=== PATIENT | male | born 1965 | race Caucasian/White ===

== ENCOUNTER 2021-03-02 10:29 | Outpatient (REF) | payer OTHER, SELFPAY ==
--- NOTE | ~2021-03-02 | XR_ITS ---
EXAMINATION: XR HUMERUS, LEFT XR FOREARM, LEFT XR HAND, LEFT CLINICAL INFORMATION: Pain left arm. COMPARISON: Radiographs left elbow 03/27/2016. TECHNIQUE: The left humerus is imaged in 3 views. The left forearm is imaged in 2 views. The left hand is imaged in 3 views. There are total of 8 views. FINDINGS: The left humerus shows no fracture, dislocation or destructive process. There is no periostitis. Glenohumeral joint is unremarkable. The left forearm shows no fracture, dislocation or destructive process. Again, there is borderline spurring from the olecranon, coronoid process, and medial epicondyle. There is no visible elbow capsular effusion. No joint narrowing. The left hand shows no fracture, dislocation or destructive process. The ulnar variance is neutral. The carpus, metacarpals, and interphalangeal joints show no focal narrowing or erosive change. XR/XR forearm LT 2V IMPRESSION: 1. No fracture or dislocation or destructive process. 2. Minor spurring elbow (olecranon, coronoid, medial epicondyle).
--- NOTE | ~2021-03-02 | XR_ITS ---
EXAMINATION: XR HUMERUS, RIGHT XR FOREARM, RIGHT CLINICAL INFORMATION: Right arm pain. COMPARISON: None TECHNIQUE: The right humerus is imaged in 2 views. The right forearm is imaged in 2 views. There are a total of 4 views. FINDINGS: The right humerus shows no fracture, dislocation or destructive process. Bony mineralization appears normal. There is no periostitis. The glenohumeral joint is unremarkable. The right forearm shows no fracture, dislocation or destructive process. There is normal bony mineralization. No periostitis. No elbow capsular effusion. No joint narrowing. XR/XR humerus RT IMPRESSION: Normal right humerus, right forearm.
--- NOTE | ~2021-03-02 | XR_ITS ---
EXAMINATION: XR HUMERUS, LEFT XR FOREARM, LEFT XR HAND, LEFT CLINICAL INFORMATION: Pain left arm. COMPARISON: Radiographs left elbow 03/27/2016. TECHNIQUE: The left humerus is imaged in 3 views. The left forearm is imaged in 2 views. The left hand is imaged in 3 views. There are total of 8 views. FINDINGS: The left humerus shows no fracture, dislocation or destructive process. There is no periostitis. Glenohumeral joint is unremarkable. The left forearm shows no fracture, dislocation or destructive process. Again, there is borderline spurring from the olecranon, coronoid process, and medial epicondyle. There is no visible elbow capsular effusion. No joint narrowing. The left hand shows no fracture, dislocation or destructive process. The ulnar variance is neutral. The carpus, metacarpals, and interphalangeal joints show no focal narrowing or erosive change. XR/XR humerus LT IMPRESSION: 1. No fracture or dislocation or destructive process. 2. Minor spurring elbow (olecranon, coronoid, medial epicondyle).
--- NOTE | ~2021-03-02 | XR_ITS ---
EXAMINATION: XR HUMERUS, LEFT XR FOREARM, LEFT XR HAND, LEFT CLINICAL INFORMATION: Pain left arm. COMPARISON: Radiographs left elbow 03/27/2016. TECHNIQUE: The left humerus is imaged in 3 views. The left forearm is imaged in 2 views. The left hand is imaged in 3 views. There are total of 8 views. FINDINGS: The left humerus shows no fracture, dislocation or destructive process. There is no periostitis. Glenohumeral joint is unremarkable. The left forearm shows no fracture, dislocation or destructive process. Again, there is borderline spurring from the olecranon, coronoid process, and medial epicondyle. There is no visible elbow capsular effusion. No joint narrowing. The left hand shows no fracture, dislocation or destructive process. The ulnar variance is neutral. The carpus, metacarpals, and interphalangeal joints show no focal narrowing or erosive change. XR/XR hand LT min 3V IMPRESSION: 1. No fracture or dislocation or destructive process. 2. Minor spurring elbow (olecranon, coronoid, medial epicondyle).
--- NOTE | ~2021-03-02 | XR_ITS ---
EXAMINATION: XR HUMERUS, RIGHT XR FOREARM, RIGHT CLINICAL INFORMATION: Right arm pain. COMPARISON: None TECHNIQUE: The right humerus is imaged in 2 views. The right forearm is imaged in 2 views. There are a total of 4 views. FINDINGS: The right humerus shows no fracture, dislocation or destructive process. Bony mineralization appears normal. There is no periostitis. The glenohumeral joint is unremarkable. The right forearm shows no fracture, dislocation or destructive process. There is normal bony mineralization. No periostitis. No elbow capsular effusion. No joint narrowing. XR/XR forearm RT 2V IMPRESSION: Normal right humerus, right forearm.
[2021-03-02 11:43] LABS: MANUAL DIFF FLAG NO
[2021-03-02 11:47] LABS: Basophils Percent Auto 0.4 % (0-2); Eosinophils Absolute Auto 0.1 X10*3/uL (0.0-0.4); Eosinophils Percent Auto 1.9 % (0-4); Hematocrit 48.4 % (42-52); Hemoglobin 15.9 g/dl (14.0-18.0); Imm Gran Abs Auto 0.05 X10*3/uL (0.00-0.03); Imm Gran Pct Auto 0.7 % (0.0-0.4); Lymphocytes Absolute Auto 2.4 X10*3/uL (1.2-4.9); Lymphocytes Percent Auto 35.5 % (20-40); Mean Corpuscular HGB Conc 32.9 g/dl (31.0-36.0); Mean Corpuscular Hemoglobin 28.4 pg (27.0-33.0); Mean Corpuscular Volume 86.4 fL (80-98); Mean Platelet Volume 10.4 fL (9.4-12.4); Monocytes Absolute Auto 0.5 X10*3/uL (0.1-1.2); Neutrophils Absolute Auto 3.6 X10*3/uL (2.0-8.3); Neutrophils Percent Auto 54.5 % (45-73); Platelet Count 317 X10*3/uL (160-400); Red Cell Distribution Width 13.7 % (11.0-16.0); White Blood Count 6.7 X10*3/uL (4.8-10.8)
[2021-03-02 12:16] LABS: Alanine Aminotransferase 17 U/L (0-40); Albumin Level 4.6 g/dL (3.5-5.0); Alkaline Phosphatase 71 U/L (39-117); Anion Gap 12 (12-20); Aspartate Amino Transferase 19 U/L (5-37); Bilirubin Total 0.6 mg/dL (0.0-1.0); Blood Urea Nitrogen 20 mg/dL (9-16); Calcium 10.2 mg/dL (8.4-10.2); Carbon Dioxide 26 mmol/L (22-29); Chloride 107 mmol/L (96-108); Cholesterol 299 mg/dL; Estimated Glomerular Filt Rate > 60; Glucose Random 91 mg/dL (60-115); HDL Cholesterol 38 mg/dL; LDL Cholesterol Calculated 234 mg/dl; Potassium 4.7 mmol/L (3.3-5.1); Sodium 140 mmol/L (135-145); Total Protein 7.4 g/dL (6.5-8.0); Triglycerides 138 mg/dL
[2021-03-02 12:40] LABS: TSH reflex Free T4 0.61 uIU/mL (0.32-4.0); Vitamin D 25-OH Total 11.4 ng/mL (>30)
[2021-03-02 13:07] LABS: Vitamin B12 169 pg/mL (200-900)
[2021-03-02 14:25] LABS: Estimated Average Glucose 108 mg/dL; Hemoglobin A1c % 5.4 %
== END 2021-03-02 10:30 | disposition home or self-care (01) ==
LOC: HO.XRAY 10:29
PROVIDERS: Absent Provider Internal Medicine; PCP Internal Medicine; Visit Provider Registered Nurse
DX: M79.601 Pain in right arm (principal); M79.602 Pain in left arm; R20.0 Anesthesia of skin; E78.00 Pure hypercholesterolemia, unspecified; I10 Essential (primary) hypertension
CPT/HCPCS: 36415; 73060; 73090; 73130; 80053; 80061; 82306; 82607; 82746; 83036; 84443; 85025

== ENCOUNTER 2021-07-10 20:41 | Emergency (ER) | payer OTHER, SELFPAY ==
[2021-07-10 20:45] VITALS: BP 150/111; PULSE 96; RESP 16; TEMP 36.5; O2SAT 98; BMI 31.4
[2021-07-10 23:05] VITALS: BP 140/106; PULSE 87; RESP 16; TEMP 36.6; O2SAT 96
--- NOTE | 2021-07-10 23:05 | ED.ABDPAIN ---
HPI - Abdominal Pain General Chief Complaint: Abdominal Pain Stated Complaint: gi problems Time Seen by Provider: 07/10/21 22:45 Source: patient, EMS and director of community center Mode of arrival: EMS Limitations: no limitations and language barrier History of Present Illness HPI narrative: 55-year-old male with a past medical history of hypertension and hyperlipidemia here with complaints of upper abdominal pain after eating a old hamburger at 19:00. He had 3 episodes of vomiting after this. No diarrhea. MD elicited complaint: abdominal pain Related Data Previous Rx's Medication Instructions Recorded ondansetron 4 mg disintegrating 4 mg PO Q6H PRN #10 tab 07/11/21 tablet Allergies Allergy/AdvReac Type Severity Reaction Status Date / Time No Known Allergies Allergy Unverified 08/05/20 16:43 Review of Systems Review of Systems Yes all other systems are reviewed and are negative Constitutional: Reports no additional constitutional complaints, Denies body ache(s), Denies chills, Denies fever(s), Denies headache(s) and Denies weakness Eyes: Reports no additional eye complaints and Denies change in vision Reports system reviewed and no additional complaints, except as documented, Denies dizziness, Denies headache(s), Denies nasal congestion, Denies nasal discharge and Denies neck pain Cardiovascular: Reports no additional cardiovascular complaints, Denies chest pain, Denies leg edema and Denies dyspnea Respiratory: Reports no additional respiratory complaints, Denies cough and Denies dyspnea Gastrointestinal: Reports no additional gastrointestinal complaints, Reports abdominal pain, Denies diarrhea, Reports nausea and Denies vomiting Genitourinary: Denies urinary incontinence Musculoskeletal: Reports no additional musculoskeletal complaints, Denies back pain, Denies arthralgias, Denies joint swelling, Denies neck pain, Denies numbness and Denies tingling Skin/Breast: Reports system reviewed and no additional complaints, except as docu and Denies rash Reports system reviewed and no additional complaints, except as documented, Denies Abnormal speech present, Denies dizziness, Denies headache(s), Denies numbness, Denies tingling and Denies weakness Physical Exam Vital Signs: Vital Signs: Last Vital Signs Temp 97.9 F 07/10/21 23:05 Pulse 87 07/10/21 23:05 Resp 16 07/11/21 00:58 BP 140/106 H 07/10/21 23:05 Pulse Ox 96 07/10/21 23:05 Body Mass Index 31.4 Const: General: cooperative, healthy appearing, comfortable and no acute distress Orientation/consciousness: patient oriented x3 Limitations: no limitations HENMT: Head: Yes normal to inspection Ears: hearing grossly normal bilaterally General nose exam: Normal external nose present Face and sinus: Yes normal facial exam Mouth: Normal oral and palatal mucosa present Throat: Yes posterior oropharynx normal Eyes: General: appearance normal, both eyes and all related structures Pupils: Equal, round and reactive pupils present Neck: Neck: Yes normal visual inspection Chest: Chest palpation & inspection: normal inspection of the chest Resp: Effort & Inspection: normal respiratory effort Auscultation: clear to auscultation bilaterally Cardio: Rate: regular rate Rhythm: regular rhythm Peripheral pulses: Peripheral pulses 2+ throughout GI: Inspection: Yes normal to inspection Palpation (GI): Soft to palpation and Tenderness to palpation present (GI) (Diffusely tender. No rebound or guarding) Auscultation: normal bowel sounds Back/Spine/Pelvis: Thoracic/Lumbar Spine: thoracic and lumbar spine normal to inspection Skin: General skin exam: no rashes or lesions noted Neuro: General: patient oriented x3, no focal motor deficits and normal sensation to monofilament Cranial nerves: Yes Equal, round and reactive pupils present Cognition (Neuro): normal cognition Speech: No Abnormal speech present Gait exam (Neuro): Normal gait present Motor exam (neuro): 5/5 motor strength present throughout Extrem: General: Yes normal to inspection Course Course Course Narrative: 55-year-old male here with complaints of diffuse abdominal pain, vomiting after eating an old hamburger at 19:00. On exam has diffuse tenderness with no focal tenderness or rebound or guarding. Will check labs, provide analgesia, normal saline bolus and antiemetic.. 0100-patient tells me he is feeling much improved. Pain and nausea are resolved. Repeat abdominal exam is benign. He will attempt a p.o. trial prior to discharge home.. Mild leukocytosis likely secondary to vomiting. 0130-patient drank 8 oz of rosy patrica with no additional vomiting episodes. Reviewed worrisome signs and symptoms of when to return to the emergency department. Comfortable discharge home. MDM - Abdominal Pain Medical Records Attestation: I reviewed the patient's medical records. Lab Data Attestation: I reviewed the patient's lab results. Result diagrams: 07/10/21 23:12 07/10/21 23:12 Labs: Lab Results 07/10/21 07/10/21 Range/Units 23:12 23:12 WBC 18.7 H (4.8-10.8) X10*3/uL RBC 6.02 H (4.60-5.80) X10*6/uL Hgb 17.5 (14.0-18.0) g/dl Hct 51.1 (42-52) % MCV 84.9 (80-98) fL MCH 29.1 (27.0-33.0) pg MCHC 34.2 (31.0-36.0) g/dl RDW 13.4 (11.0-16.0) % Plt Count 308 (160-400) X10*3/uL MPV 10.0 (9.4-12.4) fL Immature Gran % (Auto) 0.8 H (0.0-0.4) % Neut % (Auto) 87.3 H (45-73) % Lymph % (Auto) 5.9 L (20-40) % Shannon % (Auto) 5.5 (2-11) % Eos % (Auto) 0.2 (0-4) % Baso % (Auto) 0.3 (0-2) % Lymph # (Auto) 1.1 L (1.2-4.9) X10*3/uL Shannon # (Auto) 1.0 (0.1-1.2) X10*3/uL Eos # (Auto) 0.0 (0.0-0.4) X10*3/uL Baso # (Auto) 0.1 (0.0-0.2) X10*3/uL Abs Immat Gran (auto) 0.15 H (0.00-0.03) X10*3/uL Absolute Neuts (auto) 16.4 H (2.0-8.3) X10*3/uL Absolute Nucleated RBC 0.000 (0.0-0.012) X10*3/uL Nucleated RBC % (auto) 0.0 (0.0-0.2) /100WBC Sodium 142 (135-145) mmol/L Potassium 5.0 (3.3-5.1) mmol/L Chloride 103 (96-108) mmol/L Carbon Dioxide 28 (22-29) mmol/L Anion Gap 16 (12-20) BUN 20 H (9-16) mg/dL Creatinine 1.34 (0.5-1.4) mg/dL Estim Creat Clear Calc 63.3 Estimated GFR 55 Random Glucose 168 H D (60-115) mg/dL Calcium 10.9 H D (8.4-10.2) mg/dL Total Bilirubin 0.4 (0.0-1.0) mg/dL Direct Bilirubin 0.2 (0.0-0.5) mg/dL AST 26 (5-37) U/L ALT 26 (0-40) U/L Alkaline Phosphatase 75 (39-117) U/L Total Protein 8.2 H (6.5-8.0) g/dL Albumin 5.0 (3.5-5.0) g/dL Lipase 12 (8-78) U/L Discharge Plan Discharge Clinical Impression: Food poisoning Patient Disposition: Home, Self-Care Instructions: Food Poisoning (ED) Additional Instructions: Increase fluids, rest Start with fluids and then advance her diet as tolerated Prescriptions: New ondansetron 4 mg tablet,disintegrating 4 mg PO Q6H PRN (Reason: nausea and vomiting) Qty: 10 RF: 0 Referrals: Pee Lopes MD [Primary Care Provider] - 2 days (as needed) Stand Alone Forms: Work/School Release Print Language: Yakut [facility] Past Medical History Attestation statement: The following information was validated with the patient. Source: old records reviewed and nursing notes reviewed Medical History HLD (hyperlipidemia) HTN (hypertension) Social History Social History Advance Directives: No Advance Directives Information Provided: No
[2021-07-10] MEDS: ondansetron HCL 4 MG/2 ML VIAL IVPUSH (23:18)
[2021-07-10 23:19] LABS: Basophils Absolute Auto 0.1 X10*3/uL (0.0-0.2); Basophils Percent Auto 0.3 % (0-2); Eosinophils Percent Auto 0.2 % (0-4); Hematocrit 51.1 % (42-52); Hemoglobin 17.5 g/dl (14.0-18.0); Imm Gran Abs Auto 0.15 X10*3/uL (0.00-0.03); Imm Gran Pct Auto 0.8 % (0.0-0.4); Lymphocytes Absolute Auto 1.1 X10*3/uL (1.2-4.9); Lymphocytes Percent Auto 5.9 % (20-40); MANUAL DIFF FLAG NO; Mean Corpuscular HGB Conc 34.2 g/dl (31.0-36.0); Mean Corpuscular Hemoglobin 29.1 pg (27.0-33.0); Mean Corpuscular Volume 84.9 fL (80-98); Monocytes Percent Auto 5.5 % (2-11); Neutrophils Absolute Auto 16.4 X10*3/uL (2.0-8.3); Neutrophils Percent Auto 87.3 % (45-73); Platelet Count 308 X10*3/uL (160-400); Red Blood Count 6.02 X10*6/uL (4.60-5.80); Red Cell Distribution Width 13.4 % (11.0-16.0); White Blood Count 18.7 X10*3/uL (4.8-10.8)
[2021-07-10 23:21] VITALS: RESP 16
[2021-07-10] MEDS: Morphine Sulfate 4 MG/ML CARTRIDGE IVPUSH (23:21)
[2021-07-10] MEDS: 0.9 % Sodium Chloride 1,000 ML 999 ML IV (23:23)
[2021-07-10] MEDS: Famotidine/PF 20 MG/2 ML VIAL IVPUSH (23:24)
[2021-07-10 23:56] LABS: Alanine Aminotransferase 26 U/L (0-40); Alkaline Phosphatase 75 U/L (39-117); Anion Gap 16 (12-20); Aspartate Amino Transferase 26 U/L (5-37); Bilirubin Direct 0.2 mg/dL (0.0-0.5); Bilirubin Total 0.4 mg/dL (0.0-1.0); Blood Urea Nitrogen 20 mg/dL (9-16); Calcium 10.9 mg/dL (8.4-10.2); Carbon Dioxide 28 mmol/L (22-29); Chloride 103 mmol/L (96-108); Creatinine Clr Calc Pharmacy 63.3; Estimated Glomerular Filt Rate 55; Glucose Random 168 mg/dL (60-115); Lipase 12 U/L (8-78); Sodium 142 mmol/L (135-145); Total Protein 8.2 g/dL (6.5-8.0)
[2021-07-11 00:58] VITALS: RESP 16
== END 2021-07-11 01:27 | disposition home or self-care (01) ==
PROVIDERS: Nurse Practitioner Family; Emergency Provider Internal Medicine; PCP Internal Medicine
DX: R10.9 Unspecified abdominal pain (principal); I10 Essential (primary) hypertension; E78.5 Hyperlipidemia, unspecified; Z79.899 Other long term (current) drug therapy
CPT/HCPCS: 36415; 80048; 80076; 83690; 85025; 96365; 96375; 99284; J2270; J2405

== ENCOUNTER 2023-03-24 21:24 | Emergency (ER) | payer OTHER, SELFPAY ==
--- NOTE | ~2023-03-24 | CT_ITS ---
EXAMINATION: CT ABDOMEN AND PELVIS WITHOUT CONTRAST CLINICAL INFORMATION: Left lower quadrant pain COMPARISON: 07/02/2012 TECHNIQUE: Multidetector volumetric imaging was performed from the superior aspect of the liver through the pubic symphysis. Sagittal and coronal reformatted images were obtained on the technologist's workstation. This CT examination was performed using dose optimization techniques as appropriate, variously including the following: *Automated exposure control *Adjustment of mA and/or kV according to patient size (this includes techniques or standardized protocols for targeted exams where dose is matched to indication/reason for exam; i.e. extremities or head) *Use of iterative reconstruction technique DLP: 657 mGy-cm FINDINGS: Suboptimal assessment in some regions due to motion artifact. LUNG BASES: The visualized lung bases are unremarkable. LIVER, GALLBLADDER, AND BILIARY TREE: The liver is normal in size, shape, and attenuation. No focal hepatic lesion or biliary ductal dilatation is identified. The gallbladder is unremarkable. PANCREAS: Mildly atrophic. SPLEEN: Unremarkable. ADRENAL GLANDS: Unremarkable. KIDNEYS AND URETERS: No hydronephrosis or obstructing calculus bilaterally. Tiny calculus noted in the right upper pole. BLADDER: Unremarkable. GASTROINTESTINAL TRACT: Colonic diverticulosis is noted. No significant bowel wall thickening is seen. There is mild fluid distention of much of the small bowel, though no disproportionate dilation is seen to strongly suggest obstruction. Appendix appears at the upper limits of normal in size, without surrounding inflammation. No free fluid or free air is seen. ABDOMINAL WALL: No significant hernia is appreciated. LYMPH NODES: Normal. VASCULAR: Unremarkable. PELVIC VISCERA: Unremarkable. OSSEOUS STRUCTURES: Scattered endplate osteophytes in the spine. Facet arthropathy at L5-S1. CT/CT abdomen pelvis wo IV con IMPRESSION: 1. Mild fluid distention of much of the small bowel, though no disproportionate dilation is seen to strongly suggest obstruction. A mild ileus would be a possibility. 2. Colonic diverticulosis without diverticulitis. 3. Tiny right upper pole renal calculus without hydronephrosis.
[2023-03-24 21:29] VITALS: BP 138/100; PULSE 90; RESP 20; TEMP 36.3; O2SAT 95; BMI 32.0
[2023-03-24 21:55] LABS: Hematocrit 46.3 % (42.0-52.0); Hemoglobin 15.5 g/dl (14.0-18.0); Mean Corpuscular HGB Conc 33.5 g/dl (31.0-36.0); Mean Corpuscular Hemoglobin 28.3 pg (27.0-33.0); Mean Corpuscular Volume 84.5 fL (80.0-98.0); Platelet Count 258 X10*3/uL (160-400); Red Blood Count 5.48 X10*6/uL (4.60-5.80); Red Cell Distribution Width 13.5 % (11.0-16.0); White Blood Count 15.1 X10*3/uL (4.8-10.8)
[2023-03-24 22:25] LABS: Alanine Aminotransferase 20 U/L (0-40); Albumin Level 4.5 g/dL (3.5-5.0); Alkaline Phosphatase 69 U/L (39-117); Anion Gap 14 (12-20); Aspartate Amino Transferase 21 U/L (5-37); Bilirubin Direct 0.1 mg/dL (0.0-0.5); Bilirubin Total 0.4 mg/dL (0.0-1.0); Blood Urea Nitrogen 19 mg/dL (9-16); Calcium 10.3 mg/dL (8.4-10.2); Carbon Dioxide 25 mmol/L (22-29); Chloride 105 mmol/L (96-108); Estimated Glomerular Filt Rate > 60; Glucose Random 108 mg/dL (60-115); Lipase 16 U/L (8-78); Potassium 4.2 mmol/L (3.3-5.1); Sodium 140 mmol/L (135-145); Total Protein 7.9 g/dL (6.5-8.0)
[2023-03-24 23:55] VITALS: BP 143/97; PULSE 83; RESP 14; TEMP 36.6; O2SAT 96
--- NOTE | 2023-03-25 00:34 | ED.ABDPAIN ---
HPI - Abdominal Pain General Chief Complaint: Abdominal Pain Stated Complaint: abd pain/n/v Time Seen by Provider: 03/24/23 23:58 Source: patient and drilling field professional Mode of arrival: ambulatory History of Present Illness HPI narrative: 57-year-old male who reports abdominal discomfort for 2 days and points to his mid lower abdomen an states that he is continued to pass flatus and his last bowel movement was yesterday and reports associated nausea or vomiting but denies fevers and describes chills. He denies any urinary symptoms and denies any surgical history in the abdomen. He has never had this pain before. Related Data Previous Rx's Medication Instructions Recorded ondansetron 4 mg disintegrating 4 mg PO Q6H PRN nausea and 07/11/21 tablet vomiting #10 tabs ondansetron 4 mg disintegrating 4 mg PO Q6H PRN nausea and 03/25/23 tablet vomiting #10 tabs Allergies Allergy/AdvReac Type Severity Reaction Status Date / Time No Known Allergies Allergy Unverified 08/05/20 16:43 Review of Systems Review of Systems Pertinent positives and negatives as stated in HPI PMFSH Past Medical History Source: nursing notes reviewed Medical History HLD (hyperlipidemia) HTN (hypertension) Social History Social History Advance Directives: No Advance Directives Information Provided: Yes Physical Exam ED Vital Signs: Vital Signs - 24 hr 03/24/23 21:29 03/24/23 23:55 Temperature 97.3 F 97.9 F Pulse Rate 90 83 Respiratory Rate 20 14 Blood Pressure 138/100 H 143/97 H Pulse Oximetry 95 96 Oxygen Delivery Method Room Air Room Air BMI result Body Mass Index 32.0 VITAL SIGNS: Reviewed. GENERAL: Well developed, well nourished, in no acute distress. HEAD: Normocephalic/atraumatic EYES: PERRLA, EOMI EARS: Ext canals without abnormality OROPHARYNX: no oral lesions noted, posterior pharynx clear NECK: Supple, no adenopathy LUNGS: Normal breath sounds. No adventitious sounds or accessory muscle use. SpO2<96> CARDIOVASCULAR: Regular rate and rhythm without noted murmurs ABDOMEN: Soft, diffusely tender on lower abdomen no obvious hernia, no rebound tenderness, non-distended with bowel sounds. MUSCULOSKELETAL: No tenderness, deformities, or effusions noted on gross inspection. EXTREMITIES: No cyanosis, clubbing or edema. SKIN: Inspection of the skin reveals no rashes NEUROLOGIC: Alert and oriented x 4. Strength and sensation to light touch were grossly intact x 4. Medical Decision Making Medical Decision Making [facility] Narrative: 0036: 57-year-old male with history and clinical presentation mildly suggestive of possible diverticulitis, renal colic, and lower clinical suspicion for SBO. Review of all investigations to include imaging studies which do not depth straits diverticulitis, however patient has a white counts and a tender abdomen and obvious evidence enteritis on CT scan. I reviewed his previous chart which demonstrates a leukocytosis and 2020 and presumptive treatment for food poisoning. Patient will be discharged in stable condition with instructions to drink plenty of fluids, he will receive prescription for Zofran, and instructed to follow-up with primary care provider on Sunday morning. Differential Diagnosis Please see the discussion above Lab Data Please see the discussion above 03/24/23 21:49 03/24/23 21:49 Labs: Lab Results 03/24/23 03/24/23 Range/Units 21:49 21:49 WBC 15.1 H (4.8-10.8) X10*3/uL RBC 5.48 (4.60-5.80) X10*6/uL Hgb 15.5 (14.0-18.0) g/dl Hct 46.3 (42.0-52.0) % MCV 84.5 (80.0-98.0) fL MCH 28.3 (27.0-33.0) pg MCHC 33.5 (31.0-36.0) g/dl RDW 13.5 (11.0-16.0) % Plt Count 258 (160-400) X10*3/uL MPV 10.0 (9.4-12.4) fL Absolute Nucleated RBC 0.000 (0.0-0.012) X10*3/uL Nucleated RBC % (auto) 0.0 (0.0-0.2) /100WBC Sodium 140 (135-145) mmol/L Potassium 4.2 (3.3-5.1) mmol/L Chloride 105 (96-108) mmol/L Carbon Dioxide 25 (22-29) mmol/L Anion Gap 14 (12-20) BUN 19 H (9-16) mg/dL Creatinine 1.20 (0.5-1.4) mg/dL Estim Creat Clear Calc 70.0 Estimated GFR > 60 Random Glucose 108 (60-115) mg/dL Calcium 10.3 H (8.4-10.2) mg/dL Total Bilirubin 0.4 (0.0-1.0) mg/dL Direct Bilirubin 0.1 (0.0-0.5) mg/dL AST 21 (5-37) U/L ALT 20 (0-40) U/L Alkaline Phosphatase 69 (39-117) U/L Total Protein 7.9 (6.5-8.0) g/dL Albumin 4.5 (3.5-5.0) g/dL Lipase 16 (8-78) U/L Radiology Impression Radiologist Impression: My interpretation is in agreement with radiology's impression of the imaging studies. External Record Review External record reviewed: Outpatient record and Prior outpatient labs Discharge Plan Discharge Clinical Impression: Gastroenteritis, Food poisoning Patient Disposition: Home, Self-Care Instructions: Gastroenteritis (ED), Food Poisoning (ED) Additional Instructions: 1. Aumente la cantidad de consumo de agua. Te he dado elena receta para un medicamento contra las n?useas. 2. Yaneli un seguimiento con buckner proveedor de atenci?n primaria el es por la ma?harvey. Regrese a la rosibel de emergencias si los s?ntomas empeoran. 1. Please increase the amount water intake. I have given you a prescription for antinausea medication. 2. Follow-up with your primary care provider on Sunday morning. Return to the ER for any worsening symptoms. Prescriptions: New ondansetron 4 mg tablet,disintegrating 4 mg PO Q6H PRN (Reason: nausea and vomiting) Qty: 10 0RF No Action ondansetron 4 mg tablet,disintegrating 4 mg PO Q6H PRN (Reason: nausea and vomiting) Qty: 10 0RF Referrals: [facility] [Primary Care Provider] - Print Language: Ukrainian
[2023-03-25 01:44] LABS: Appearance Urine Clear; Color Urine Yellow; Glucose Urine UA Negative (Negative); Leukocyte Esterase Urine Negative (Negative); Nitrite Urine Negative (Negative); PH 6.5 (5.0-9.0); Specific Gravity - Urine >= 1.030 (1.005-1.025); UMIC TRIGGER UACC YES; Urine Blood Negative (Negative); Urine Ketones 40 mg/dL (Negative); Urine Protein 30 (1+) mg/dL (Neg-Trace)
[2023-03-25 01:50] LABS: Bacteria Urine None Seen (None Seen); Hyaline Casts Urine 0-2 /LPF (0-2); RBC Urine 0-2 /HPF (0-2); Squamous Epithelial Cell Urine 0-2 /HPF (0-2); WBC Urine 0-5 /HPF (0-5)
== END 2023-03-25 01:45 | disposition home or self-care (01) ==
PROVIDERS: Emergency Provider Student in an Organized Health Care Education/Training Program
DX: A05.9 Bacterial foodborne intoxication, unspecified (principal); K52.29 Other allergic and dietetic gastroenteritis and colitis; R10.13 Epigastric pain; Z79.899 Other long term (current) drug therapy
CPT/HCPCS: 36415; 74176; 80048; 80076; 81001; 83690; 85027; 99283

== ENCOUNTER 2024-03-18 11:19 | Outpatient (REF) | payer OTHER, SELFPAY ==
[2024-03-18 13:54] LABS: Anion Gap 12 (12-20); Blood Urea Nitrogen 20 mg/dL (9-16); Calcium 10.7 mg/dL (8.4-10.2); Carbon Dioxide 26 mmol/L (22-29); Chloride 105 mmol/L (96-108); Cholesterol 152 mg/dL (<200); Estimated Glomerular Filt Rate 57; Glucose Fasting 102 mg/dL (60-99); HDL Cholesterol 38 mg/dL (>40); LDL Cholesterol Calculated 78 mg/dL (<100); Potassium 4.4 mmol/L (3.3-5.1); Sodium 139 mmol/L (135-145); Triglycerides 180 mg/dL (<150)
== END 2024-03-18 11:20 | disposition home or self-care (01) ==
LOC: HO.HHCL 11:19
PROVIDERS: Visit Provider Internal Medicine
DX: I10 Essential (primary) hypertension (principal); E78.00 Pure hypercholesterolemia, unspecified
CPT/HCPCS: 36415; 80048; 80061

== ENCOUNTER 2024-03-26 10:43 | Outpatient (REF) | payer OTHER, SELFPAY ==
[2024-03-28 20:34] LABS: Calcium, Ionized 5.4 mg/dL (4.7-5.5)
== END 2024-03-26 10:44 | disposition home or self-care (01) ==
LOC: HO.LAB 10:43
PROVIDERS: PCP Internal Medicine; Visit Provider Internal Medicine
DX: Z00.00 Encounter for general adult medical examination without abnormal findings (principal); M10.072 Idiopathic gout, left ankle and foot; E83.52 Hypercalcemia; Z12.5 Encounter for screening for malignant neoplasm of prostate
CPT/HCPCS: 36415; 82330; 84153; 84550

== ENCOUNTER 2025-01-06 08:38 | Outpatient (REF) | payer OTHER, SELFPAY ==
--- OUTSIDE RECORDS SUMMARY | 2025-01-06 09:04 | XMS_ITS | Encounter Summary ---
Author Organization [employer] Address [address] [place] [address] Care Team Providers Care Solar Resource Assessor Name Role Phone Pee Loyola MD Primary Care Provide r Erin Jensen PharmD Unavailable [phone] Reason for Visit * Reason Onset Date Comments May Recall 01/01/2025 Encounter Details Date Type Department Care Team ([facility] st Contact Info) Description 01/01/2025 Telephone [facility] [address], [place] [phone] Pee Loyola MD [address] [place] [address] May Recall Social History Tobacco Use Types Packs/Day Years Used Date Smoking Tobacco: Never Smokeless Tobacco: Never Alcohol Use Standard Drinks/Week Comments Never 0 (1 standard drink = 0.6 oz pur e alcohol) Depression Answer Date Recorded Patient Health Questionnaire-9 Score 0 03/20/2024 Patient Health Questionnaire-9 Score 0 03/20/2024 Last PHQ-9: Questionnaire Data Not on file 0 03/20/2024 Housing Stability Answer Date Recorded What is your housing situation today? I do not have housing (Staying with others, in a hotel, in a fdc, living outside on the street, on a beach, in a car, or in a park 03/12/[address] you li ve. Do you have problems with any of the following? None of the above 03/12/2024 Food Insecurity Answer Date Recorded Within the past 12 months, y ou worried that your food would run out before you got money to buy more: Sometimes True 2023 Within the past 12 months,th e food you bought just didn't last and you didn't have enough money to get more: Sometimes True 03/12/2024 Transportation Answer Date Recorded In the past 12 months, has l ack of transportation kept you from medical appts, meetings, work or from getting things needed for daily living? No 03/12/2024 Utilities Answer Date Recorded In the past 12 months, has t he electric, gas, oil or water company threatened to shut off services in your home? No 03/12/2024 Depression Answer Date Recorded Patient Health Questionnaire-2 Score 0 03/20/2024 Sex and Gender Information Value Date Recorded Sex Assigned at Male 09/18/2022 10:15 AM EDT Legal Sex Male 10:15 AM EDT Gender Identity Male 12/18/2024 1:00 PM EST Sexual Orientation Straight 12/18/2024 1: 00 PM EST documented as of this encounter Miscellaneous Notes * Telephone Encounter - Ariadne Moulton [place] - 01/01/2025 3:26 PM EST Telephone call to patient to schedule a recall appointment. No answer, Left voicemail to return call to clinic.. Recall letter sent. Visit type: Physical Appointment notes: PE & HTN Month due: May With: Roz Please schedule appointment above if patient returns call documented in this encounter Plan of Treatment Not on file documented as of this encounter Goals Goal Patient Goal Type Associated Problems Recent Progress Patient-Stated? Author Blood Pressure < 140/90 Blood Pressure Hypertension 120/81(2024 12:54 PM EST) No Eirn Jensen PharmD Short-term: Promote adherence to treatment regimen General Hypertension Not on track( 024 4:11 PM EDT) No Erin Jensen PharmD Note: Forgets to take medications about 3x/ weekly. documented as of this encounter Visit Diagnoses Not on filedocumented in this encounter Additional Health Concerns Assessment Noted Time PHQ-9 Depression Total Score: 0 03/20/20 24 2:36 PM EDT documented as of this encounter Care Teams Solar Resource Assessor Relationship Specialty Start Date End Date Pee Loyola MD [address] [place] [address] PCP - General Internal Medicine 08/18/14 Erin Jensen, JamisonD [address] [place] [address] Pharmacist Internal Medicine 06/04/23 documented as of this encounter
--- OUTSIDE RECORDS SUMMARY | 2025-01-06 09:04 | XMS_ITS | Encounter Summary ---
Author Organization [employer] Address [address] [facility] 7[address] [place] [address] Care Team Providers Care Icing Coater Name Role Phone Pee Loyola MD Primary Care Provide r Erin Jensen PharmD Unavailable [phone] Reason for Referral * Consultation (Routine) - Closed Specialty Diagnoses / Procedures Referred By Tom nogueira Referred To Contact Nutrition Diagnoses Class 1 obesity due to excess calories with serious comorbidity and body mass index (BMI) of 32.0 to 32.9 in adult Pee Loyola MD [address] [place] [address] Phone: tel: fax: Referral ID Status Reason Start Date Expiration Date V isits Requested Visits Authorized [id number] Closed Consult and Treat 12/18/2024 12/18/2025 1 1 * Consultation (Routine) - Authorized Specialty Diagnoses / Procedures Referred By Tom nogueira Referred To Contact Sleep Medicine Diagnoses Obstructive sleep apnea syndrome Pee Loyola MD [address] [place] [address] Phone: tel: fax: [facility], [address] Phone: tel: fax: Referral ID Status Reason Start Date Expiration Date Visits Requested Visits Authorized [id number] Authorized Specialty Services Required 12/18/2024 12/18/2025 1 1 Reason for Visit * Reason Comments Hypertension Follow-up Pt stated that he wo uld like some assistance with weight loss; pt also wants to talk about some dark spots he has around his knuckles on his right hand Encounter Details Date Type Department Care Team (Late st Contact Info) Description 12/18/2024 1:00 PM EST Office Visit [facility] MEDICINE [address] [place] [address] Pee Loyola MD [address] [place] [address] Obstructive sleep apnea syndrome (Primary Dx); Primary hypertension; Acute idiopathic gout of left foot; Class 1 obesity due to excess calories with serious comorbidity and body mass index (BMI) of 32.0 to 32.9 in adult; Impaired glucose tolerance; Pure hypercholesterolemia; Preventative health care; Flexural eczema; Encounter for immunization Social History Tobacco Use Types Packs/Day Years [...] with others, in a hotel, in a [place] [facility], living outside on the street, on a [...] PM EST documented as of this encounter Last Filed Vital Signs Vital Sign Reading Time Taken Comments Blood Pressure 120/81 12/18/2024 12:54 PM EST Pulse 96 12/18/2024 12:54 PM EST Temperature 36.3 ??C (97.3 ??F) 12/18/2024 12:[address] Respiratory Rate 20 12/18/2024 12:54 PM EST Oxygen Saturation 96% 12/18/2024 12:54 PM EST Inhaled Oxygen Concentration - - Weight 98.6 kg (217 lb 6.4 oz) 12/18/2024 12:54 PM EST Height 172.1 cm (5' 7.75 ) 12/18/2024 12:[address] Body Mass Index 33.3 12/18/2024 12:54 PM EST documented in this encounter Progress Notes * Pee Weiner MD - 12/18/2024 1:00 PM EST SUBJECTIVE Timothy Messer is a 59 y.o. male who presents for Hypertension and Follow-up (Pt stated that he would like some assistance with weight loss; pt also wants to talk about some dark spots he has around his knuckles on his right hand). Hypertension This is a chronic problem. Pertinent negatives include no chest pain, headaches or shortness of breath. Review of Systems Constitutional: Negative for fever. HENT: Negative for sore throat. Respiratory: Negative for cough and shortness of breath. Cardiovascular: Negative for chest pain. Gastrointestinal: Negative for abdominal pain. Neurological: Negative for headaches. No Known Allergies OBJECTIVE Vitals: 12/18/24 1254 BP: 120/81 BP Location: Left arm Patient Position: Sitting BP Cuff Size: Large adult Pulse: 96 Resp: 20 Temp: 97.3 ??F (36.3 ??C) TempSrc: Temporal SpO2: 96% Weight: 217 lb 6.4 oz (98.6 kg) Height: 5' 7.75 (1.721 m) Physical Exam Vitals reviewed. Constitutional: Appearance: Normal appearance. HENT: Head: Normocephalic and atraumatic. Right Ear: External ear normal. Left Ear: External ear normal. Nose: Nose normal. Mouth/Throat: Mouth: Mucous membranes are moist. Eyes: Conjunctiva/sclera: Conjunctivae normal. Cardiovascular: Rate and Rhythm: Normal rate and regular rhythm. Pulmonary: Effort: Pulmonary effort is normal. Breath sounds: Normal breath sounds. Skin: General: Skin is warm. Neurological: Mental Status: He is alert. Mental status is at baseline. Assessment/Plan Problem List Items Addressed This Visit Obstructive sleep apnea syndrome - Primary Patient reports that he lost his Cpap machine years ago Pt was [place] [facility] [place] Relevant Orders Referral to Sleep Medicine Hypertension Patient here for a f/u BP controlled he is on a regimen of: Lisinopril 40 mg po daily and Amlodipine 10 mg po daily, Most recent electrolytes, Bun and Creatinine done on: Lab Results Component Value Date NA 139 03/18/2024 NA 140 02/08/2023 K 4.4 03/18/2024 K 4.7 02/08/2023 CL 105 03/18/2024 CL 106 02/08/2023 BUN 20 (H) 03/18/2024 BUN 20 02/08/2023 CREATININE 1.28 03/18/2024 CREATININE 1.14 02/08/2023 were within normal limits. Will repeat patient advised to adhere to a low sodium diet, encouraged about medication compliance, counseled about weight loss. I asked pt to come back in 3 months Relevant Orders Comprehensive Metabolic Panel Acute idiopathic gout of left foot Pt seen in the ER 03/07/2024 with c/o left foot pain, plain x-ray unremarkable per ER report, given a diagnosis of gout and prescribed Colchicine 0.6 mg po BID x 10 days Lab Results Component Value Date URICACID 9.0 (H) 03/26/2024 Pt started on Allopurinol 100 mg po daily Relevant Orders Uric acid Obesity Patient has been counseled and educated about diet and exercise. Personal goal of weight loss discussed Dietary Recommendations: Fruits, vegetables, whole grains, protein foods, and fat-free or low-fat dairy products are healthychoices. Eat different types of protein foods in your diet. This can include seafood, lean meats, poultry, beans, peas, lentils, nuts, seeds, soy products, and eggs. Limit foods and beverages higher in added sugars, saturated fat, and sodium. Exercise Recommendations: At least 150 minutes of moderate-intensity physical activity per week, or an equivalent combinationof moderate- and vigorous-intensity activity Relevant Orders Referral to Nutrition Therapy Impaired glucose tolerance Fasting glucose 102 02/2024 will repeat. Pure hypercholesterolemia Patient with elevated lipids. Most recent lipid profile from: 03/18/2024 Lab Results Component Value Date TRIG 180 (H) 03/18/2024 TRIG 122 02/08/2023 CHOL 152 03/18/2024 LDLCHOLCAL 78 03/18/2024 HDL 38 (L) 03/18/2024 He is supposed to be on a regimen of: Crestor 40 mg po q pm ,today I have discussed with him the importance of taking his medications as prescribed on a daily basis. Pt advised to try to adhere to a low cholesterol diet, counseled and educated about diet and exercise, Patient encouraged to come up with a personal goal for weight loss. Relevant Orders Lipid Panel, Standard Comprehensive Metabolic Panel Preventative health care PSA 02/08/2023 0.68 normal Colonoscopy: 07/19/2015 Dr. Smooth Dominguez 10 year f/u Relevant Orders PSA, Screen Other Visit Diagnoses Flexural eczema Relevant Medications triamcinolone (Kenalog) 0.1 % cream documented in this encounter Miscellaneous Notes * Addendum Note - Hui Madrigal RN - 12/18/2024 1:00 PM ESTAddended by: HUI MADRIGAL on: 12/18/2024 01:22 PM Modules accepted: Orders * Assessment & Plan Note - Pee Weiner MD - 12/18/2024 12:59 PM EST Associated Problem(s): Preventative health care PSA 02/08/2023 0.68 normal Colonoscopy: 07/19/2015 Dr. Rebollar Normal 10 year f/u * Assessment & Plan Note - Pee Weiner MD - 12/18/2024 12:58 PM EST Associated Problem(s): Pure hypercholesterolemia Patient with elevated lipids. Most recent lipid profile from: 03/18/2024 Lab Results Component Value Date TRIG 180 (H) 03/18/2024 TRIG 122 02/08/2023 CHOL 152 03/18/2024 LDLCHOLCAL 78 03/18/2024 HDL 38 (L) 03/18/2024 He is supposed to be on a regimen of: Crestor 40 mg po q pm ,today I have discussed with him the importance of taking his medications as prescribed on a daily basis. Pt advised to try to adhere to a low cholesterol diet, counseled and educated about diet and exercise, Patient encouraged to come up with a personal goal for weight loss. * Assessment & Plan Note - Pee Weiner MD - 12/18/2024 12:57 PM EST Associated Problem(s): Impaired glucose tolerance Fasting glucose 102 02/2024 will repeat. * Assessment & Plan Note - Pee Weiner MD - 12/18/2024 12:56 PM EST Associated Problem(s): Obesity Patient has been counseled and educated about diet and exercise. Personal goal of weight loss discussed Dietary Recommendations: Fruits, vegetables, whole grains, protein foods, and fat-free or low-fat dairy products are healthychoices. Eat different types of protein foods in your diet. This can include seafood, lean meats, poultry, beans, peas, lentils, nuts, seeds, soy products, and eggs. Limit foods and beverages higher in added sugars, saturated fat, and sodium. Exercise Recommendations: At least 150 minutes of moderate-intensity physical activity per week, or an equivalent combinationof moderate- and vigorous-intensity activity * Assessment & Plan Note - Pee Weiner MD - 12/18/2024 12:56 PM EST Associated Problem(s): Acute idiopathic gout of left foot Pt seen in the ER 03/07/2024 with c/o left foot pain, plain x-ray unremarkable per ER report, given a diagnosis of gout and prescribed Colchicine 0.6 mg po BID x 10 days Lab Results Component Value Date URICACID 9.0 (H) 03/26/2024 Pt started on Allopurinol 100 mg po daily * Assessment & Plan Note - Pee Weiner MD - 12/18/2024 12:55 PM EST Associated Problem(s): Hypertension Patient here for a f/u BP controlled he is on a regimen of: Lisinopril 40 mg po daily and Amlodipine 10 mg po daily, Most recent electrolytes, Bun and Creatinine done on: Lab Results Component Value Date NA 139 03/18/2024 NA 140 02/08/2023 K 4.4 03/18/2024 K 4.7 02/08/2023 CL 105 03/18/2024 CL 106 02/08/2023 BUN 20 (H) 03/18/2024 BUN 20 02/08/2023 CREATININE 1.28 03/18/2024 CREATININE 1.14 02/08/2023 were within normal limits. Will repeat patient advised to adhere to a low sodium diet, encouraged about medication compliance, counseled about weight loss. I asked pt to come back in 3 months * Assessment & Plan Note - Pee Weiner MD - 12/18/2024 12:54 PM EST Associated Problem(s): Obstructive sleep apnea syndrome Patient reports that he lost his Cpap machine years ago Pt was [place] [facility] [place] today documented in this encounter Plan of Treatment Scheduled Orders Name Type Priority Associated Diagnoses Orde r Schedule PSA, Screen Lab Routine Preventative health care Ordered: 12/18/2024 Lipid Panel, Standard Lab Routine Pure hypercholesterolemia Ordered: 12/18/2024 Comprehensive Metabolic Panel Lab Routine Primary hypertension Pure hypercholesterolemia Ordered: 12/18/2024 Uric acid Lab Routine Acute idiopathic gout of left foot Expected: 12/18/2024 (Approximate), Expires: 12/18/2025 Scheduled Referrals Name Type Priority Associated Diagnoses Orde r Schedule Referral to Sleep Medicine Outpatient Referral Routine Obstructive sleep apnea syndrome Expected: 12/18/2024 (Approximate), Expires: 12/18/2025 Referral to Nutrition Therapy Outpatient Referral Routine Class 1 obesity due to excess calories with serious comorbidity and body mass index (BMI) of 32.0 to 32.9 in adult Expected: 12/18/2024 (Approximate), Expires: 12/18/2025 documented as of this encounter Goals Goal Patient Goal Type Associated Problems Recent Progress Patient-Stated? Author Blood Pressure < 140/90 Blood Pressure Hypertension 120/81(2024 12:54 PM EST) No Erin Jensen, Melchor Short-term: Promote adherence to treatment regimen General Hypertension Not on track( 024 4:11 PM EDT) No Erin Jensen, Melchor Note: Forgets to take medications about 3x/ weekly. documented as of this encounter Visit Diagnoses Diagnosis Obstructive sleep apnea syndrome- Primary Obstructive sleep apnea (adult) (pediatric) Primary hypertension Unspecified essential hypertension Acute idiopathic gout of left foot Class 1 obesity due to excess calories with serious comorbidity and body mass index (BMI) of 32.0 to 32.9 in adult Impaired glucose tolerance Impaired glucose tolerance test Pure hypercholesterolemia Preventative health care Routine general medical examination at a health care facility Flexural eczema Other atopic dermatitis and related conditions Encounter for immunization documented in this encounter Additional Health Concerns Assessment Noted Time PHQ-9 Depression Total Score: 0 03/20/20 24 2:36 PM EDT documented as of this encounter Care Teams Icing Coater Relationship Specialty Start Date End Date Pee Loyola MD [address] [place], [place] [phone] PCP - General Internal Medicine 08/18/14 rEin Jensen PharmD [address] [place], [place] [phone] Pharmacist Internal Medicine 06/04/23 documented as of this encounter
--- OUTSIDE RECORDS SUMMARY | 2025-01-06 09:04 | XMS_ITS | Encounter Summary ---
Author Organization [employer] Address [address] [facility] 7t [place] [address] Care Team Providers Care Data Processing Clerk Name Role Phone Pee Loyola MD Primary Care Provide r Erin Jensen PharmD Unavailable [phone] Encounter Details Date Type Department Care Team (Latest Contact Info) Description 12/18/2024 Travel Social History Tobacco Use Types Packs/Day Years [...] with others, in a hotel, in a [facility], living outside on the street, on a [...] PM EST documented as of this encounter Plan of Treatment Not on file documented as of this encounter Goals Goal Patient Goal Type Associated Problems Recent Progress Patient-Stated? Author Blood Pressure < 140/90 Blood Pressure Hypertension 120/81(2024 12:54 PM EST) No Erin Jensen PharmD Short-term: Promote adherence to treatment [...] documented as of this encounter Care Teams Data Processing Clerk Relationship Specialty Start Date End Date Pee Loyola MD [address] [place] [address] PCP - General Internal Medicine 08/18/14 Erin Jensen PharmD [address] [place] [address] Pharmacist Internal Medicine 06/04/23 documented as of this encounter
--- OUTSIDE RECORDS SUMMARY | 2025-01-06 09:04 | XMS_ITS | Encounter Summary ---
Author Organization [employer] Address [address] [facility] 7t [place] [address] Care Team Providers Care High [employer] Learning Support Teacher Name Role Phone Pee Loyola MD Primary Care Provide r Erin Jensen PharmD Unavailable [phone] Reason for Visit * Reason Onset Date Comments February01/02/2025 Encounter Details Date Type Department Care Team (Late st Contact Info) Description 01/02/2025 Telephone [facility] MEDICINE [address] [place] [address] Pee Loyola MD [address] [place] [address] February Social History Tobacco Use Types Packs/Day Years [...] with others, in a hotel, in a penitentiary, living outside on the street, on a [...] Telephone Encounter - Ariadne Moulton [place] - 01/02/2025 4:17 PM EST Telephone call to patient to schedule a recall appointment. No answer, Left voicemail to return call to clinic.. Recall letter sent. Visit type: Office visit Appointment notes: HTN Month due: February With: Roz Please schedule appointment above if [...] documented as of this encounter Care Teams High School Learning Support Teacher Relationship Specialty Start Date End Date Pee Loyola MD [address] [place] [address] PCP - General Internal Medicine 08/18/14 Erin Jensen, JamisonD [address] [place] [address] Pharmacist Internal Medicine 06/04/23 documented as of this encounter
--- OUTSIDE RECORDS SUMMARY | 2025-01-06 09:04 | XMS_ITS | Encounter Summary ---
Author Organization [employer] Address [address] [facility] 7t [place] [address] Care Team Providers Care Application Support Consultant Name Role Phone Pee Loyola MD Primary Care Provide r Erin Jensen PharmD Unavailable [phone] Encounter Details Date Type Department Care Team (Late st Contact Info) Description 03/28/2023 Abstract [facility] MEDICINE [address] [place] [address] Pee Loyola MD [address] [place] [address] Social History Tobacco Use Types Packs/Day Years Used Date Smoking Tobacco: Never Smokeless Tobacco: Never Alcohol Use Standard Drinks/Week Comments Never 0 (1 standard drink = 0.6 oz pur e alcohol) Depression Answer Date Recorded Patient Health Questionnaire-9 Score 4 02/01/2023 Depression Answer Date Recorded Patient Health Questionnaire-2 Score 2 02/01/2023 Sex and Gender Information Value Date Recorded Sex Assigned at Male 09/18/2022 10:15 AM EDT Legal Sex Male 10:15 AM EDT Gender Identity Male 12/18/2024 1:00 PM EST Sexual Orientation Straight 12/18/2024 1: 00 PM EST documented as of this encounter Plan of Treatment Not on file documented as of this encounter Procedures Procedure Name Priority Date/Time Associated Diagnosis Comments COLONOSCOPY Routine 07/19/2015 documented in this encounter Results * Colonoscopy (07/19/2015) Colonoscopy Normal Normal 07/19/2015 Narrative Karen Oliver 07/19/2015 2:26 PM EDT Recommended 10 year follow up us Historical Provider HEALTH MAINTENANCE Edited Result - Final documented in this encounter Visit Diagnoses Not on filedocumented in this encounter Additional Health Concerns Assessment Noted Time PHQ-9 Depression Total Score: 4 02/02/20 23 2:38 PM EDT documented as of this encounter Care Teams Application Support Consultant Relationship Specialty Start Date End Date Pee Loyola MD [address] [place] [address] PCP - General Internal Medicine 08/18/14 Erin Jensen, JamisonD [address] [place] [address] Pharmacist Internal Medicine 06/04/23 documented as of this encounter
--- OUTSIDE RECORDS SUMMARY | 2025-01-06 09:04 | XMS_ITS | Encounter Summary ---
Author Organization [id number] Address [address] [facility] 7t [place] [address] Care Team Providers Care Sharepoint Designer Developer Name Role Phone Pee Looyla MD Primary Care Provide r Erin Jensen PharmD Unavailable [phone] Reason for Visit * Reason Onset Date Comments NUTRITION APPT REQUEST 12/30/2024 Encounter Details Date Type Department [facility] Team [facility] Description 12/30/2024 Telephone [facility] MED[facility] [address] [place], [place] [phone] Pee Loyola MD [address] [place] [address] NUTRITION APPT REQUEST Social History Tobacco Use Types Packs/Day Years [...] with others, in a hotel, in a [facility], living outside on the street, on a [...] encounter Miscellaneous Notes * Telephone Encounter - Adriana Blanchard - 12/30/2024 10:45 AM EST Called PT X2 to schedule anutrition appt. NA\LVM documented in this encounter Plan of Treatment [...] documented as of this encounter Care Teams Sharepoint Designer Developer Relationship Specialty Start Date End Date Pee Loyola MD [address] [place] [id number] PCP - General Internal Medicine 08/18/14 Erin Jensen, JamisonD [address] [place] [id number] Pharmacist Internal Medicine 06/04/23 documented as of this encounter
--- OUTSIDE RECORDS SUMMARY | 2025-01-06 09:04 | XMS_ITS | Clinical Summary ---
Author Organization [employer] Address [address] [facility] 7[address] [place] [address] Care Team Providers Care Pond Sawyer Name Role Phone Pee Loyola MD Primary Care Provide r Erin Jensen PharmD Unavailable [phone] Allergies No known active allergies Medications * This document contains information received from the source organization and may not represent a complete record from that organization. fluticasone (Flonase Allergy Relief) 50 MCG/ACT nasal spray Administer 1-2 sprays into affected nostril(s) at bed time. 03/01/20 21 Active traZODone (Desyrel) 50 MG tablet take 1 tablet (50MG) by oral route every day at bedtime 03/01/20 21 Active Blood Pressure Monitoring (Omron 3 Series BP Monitor) device USE TO CHECK BLOOD PRESSURE DAILY 04/11/20 23 Active ibuprofen 600 MG tabletIndications:Necro sis of dental pulp Take 1 tablet (600 mg) by mouth every 6 (six) hours if needed for mild pain for up to 20 doses. 20 tablet 09/03/20 23 Active lisinopril 40 MG tabletIndications:Prima ry hypertension Take 1 tablet (40 mg) by mouth in the morning. 90 tablet 3 01/03/20 24 Active allopurinol (Zyloprim) 100 MG tabletIndications:Acute idiopathic gout of left foot Take 1 tablet (100 mg) by mouth Once per day. 30 tablet 3 03/27/20 24 Active rosuvastatin (Crestor) 40 MG tabletIndications:Pure hypercholesterolemia TAKE 1 TABLET BY MOUTH EVERY DAY 90 tablet 06/11/20 24 Active chlorthalidone (Hygroton) 25 MG tablet TAKE 1 TABLET BY MOUTH EVERY MORNING 90 tablet 06/11/20 24 Active amLODIPine (Norvasc) 10 MG tabletIndications:Prima ry hypertension TAKE 1 TABLET BY MOUTH EVERY DAY 90 tablet 06/17/20 24 Active triamcinolone (Kenalog) 0.1 % creamIndications:Flexur al eczema Apply topically if needed in the morning and at bedtime (pain and swelling). 30 g 2 12/18/19 25 Active Active Problems Problem Noted Date Diagnosed Date Acute idiopathic gout of left foot 03/20/2024 Assessment & Plan (12/18/2024 12:56 PM EST): Pt seen in the ER 03/07/2024 with c/o left foot pain, plain x-ray unremarkable per ER report, given a diagnosis of gout and prescribed Colchicine 0.6 mg po BID x 10 days Lab Results Component Value Date URICACID 9.0 (H) 03/26/2024 Pt started on Allopurinol 100 mg po daily Assessment & Plan (03/20/2024 2:42 PM EDT): Pt seen in the ER 03/07/2024 with c/o left foot pain, plain x-ray unremarkable per ER report, given a diagnosis of gout and prescribed Colchicine 0.6 mg po BID x 10 days Plan: Obtain Uric Acid Hypercalcemia 03/20/2024 Assessment & Plan (03/20/2024 3:01 PM EDT): Will initiate work up Ionized Ca, if persistently elevated will check PTH, PTH rp [facility] care 02/01/2023 Assessment & Plan (12/18/2024 12:59 PM EST): PSA 02/08/2023 0.68 normal Colonoscopy: 07/19/2015 Dr. Smooth Dominguez 10 year f/u Assessment & Plan (03/20/2024 2:43 PM EDT): Colonoscopy: 07/19/2015 Dr. Smooth Dominguez 10 year f/u PSA 02/08/2023 0.68 normal Assessment & Plan (03/17/2024 4:12 PM EDT): - Due to Tdap, Hep B, and RSV vaccine - Appt scheduled for Tdap with pharmacy Assessment & Plan (06/04/2023 11:27 AM EDT): - Due for A1c and Shingrix vaccine Assessment & Plan (02/01/2023 10:44 AM EDT): Colonoscopy: 07/19/2015 Dr. Rebollar Normal 10 year f/u Impaired glucose tolerance 05/29/2013 Assessment & Plan (12/18/2024 12:58 PM EST): Fasting glucose 102 02/2024 will repeat. Assessment & Plan (03/20/2024 2:58 PM EDT): FBS 102 March 18 2024 Assessment & Plan (03/17/2024 4:12 PM EDT): - A1c checked today, 6.3% Assessment & Plan (02/01/2023 10:41 AM EDT): Will repeat FBS Chronic low back pain 09/11/2012 Assessment & Plan (02/01/2023 10:42 AM EDT): Pt with chronic low back pain. Underwent PT and epidural injections without good results. At some point pt told me he was told to be seen by a neurosurgeon for consideration of surgery but pt declined. Pt describes the pain on his Lower back, intensity 5/10, the pain goes away with the medication. The pain radiates to his right leg when he walks. Doing well, using [employer] appropriately MRI of the LS spine to done on 05/12/2015 and showed: Multilevel spondylitic changes, No canal compromise, No mass effect Obstructive sleep apnea syndrome 09/11/2012 Assessment & Plan (12/18/2024 1:06 PM EST): Patient reports that he lost his Cpap machine years ago Pt was referred to [facility] again today Assessment & Plan (02/01/2023 3:08 PM EDT): Patient reports that he lost his Cpap machine years ago Plan: repeat Sleep study , last one > 10 yrs ago. Pt requesting an in home study Depressive disorder 05/02/2012 Assessment & Plan (02/01/2023 3:10 PM EDT): Pt has Depression. Awaiting to see another Psychotherapist at [facility] Currently on Trazodone 50 mg po qhs Pt denies SI. Hypertension 05/02/2012 Overview (03/17/2024): Pharmacotherapy: - Amlodipine 10mg daily - Lisinopril 40mg daily - Chlorthalidone 25mg daily History: Established in CDTM since Aug 2022. Adherence is extremely poor rated at 15% of days. Supposed to be on the regimen described above. Adherence has improved to 20%. Daily caffeine use has cut down from >20 cups daily to 1 cup2 daily. Diet has improved. Most recent BP readings are between 105-138/68-93; HR averaging high 80s Assessment & Plan (12/18/2024 12:55 PM EST): Patient here for a f/u BP controlled [...] pt to come back in 3 months Assessment & Plan (03/20/2024 2:59 PM EDT): Patient here for a f/u BP controlled he is on a regimen of: Lisinopril 40 mg po daily and Amlodipine 10 mg po daily, Most recent electrolytes, Bun and Creatinine done on: 03/18/2024 were within normal limits. patient advised to adhere to a low sodium diet, encouraged about medication compliance, counseled about weight loss. I asked pt to come back in 3 months Assessment & Plan (03/17/2024 4:13 PM EDT): Assessment: - BP is at goal of less than 140/90 per JNC8 guidelines - BMP due for repeat Plan/ Recommendations: - Continue with current therapy - Improve adherence - BMP ordered Monitoring: Potassium (mmol/L) Date Value 02/08/2023 4.7 07/10/2021 5.0 BP Readings from Last 2 Encounters: 09/24/23 124/86 09/12/23 126/64 Assessment & Plan (08/06/2023 10:56 AM EDT): Has significantly improved BP. BP is at goal of less than 140/90 per JNC8 guidelines. Follow-up in 6 months. Assessment & Plan (06/04/2023 11:28 AM EDT): - BP is not at goal of less than 140/90 per JNC 8 guidelines - Add Chlorthalidone 25 mg daily - f/u in 3 weeks Assessment & Plan (02/01/2023 3:09 PM EDT): Patient here for a f/u BP uncontrolled due to non complaince with medications he is supposed to be on a regimen of: Lisinopril 40 mg po daily and Amlodipine 10 mg po daily, I contacted his Pharmacy who tells me he has not filled since July of last year Most recent electrolytes, Bun and Creatinine done on: 05/01/2022 were within normal limits. Today I have asked ot to have a repeat BMP Sent refills and asked pt to start taking them patient advised to adhere to a low sodium diet, encouraged about medication compliance, counseled about weight loss. I asked pt to come back in 3 months Obesity 05/02/2012 Assessment & Plan (12/18/2024 12:56 PM EST): Patient has been counseled and educated about diet and exercise. Personal goal of weight loss discussed Dietary Recommendations: Fruits, vegetables, whole grains, protein foods, and fat-free or low-fat dairy products are healthy choices. Eat different types of protein foods in your diet. This can include seafood, lean meats, poultry, beans, peas, lentils, nuts, seeds, soy products, and eggs. Limit foods and beverages higher in added sugars, saturated fat, and sodium. Exercise Recommendations: At least 150 minutes of moderate-intensity physical activity per week, or an equivalent combination of moderate- and vigorous-intensity activity Assessment & Plan (02/01/2023 3:10 PM EDT): Patient has been counseled and educated about diet and exercise. Personal goal of weight loss discussed Pure hypercholesterolemia 05/02/2012 Overview (03/17/2024): Pharmacotherapy: - Crestor 40 mg daily History: Assessment & Plan (12/18/2024 12:58 PM EST): Patient with elevated lipids. Most recent lipid [...] with a personal goal for weight loss. Assessment & Plan (03/20/2024 2:41 PM EDT): Patient with elevated lipids. Most recent lipid [...] with a personal goal for weight loss. Assessment & Plan (03/17/2024 4:31 PM EDT): Plan: - Due for lipid re-check - Crestor re-ordered Assessment & Plan (02/01/2023 3:10 PM EDT): Patient with elevated lipids. Most recent lipid profile from: 05/01/2022 shows a total cholesterol of: 229 triglycerides of: 121 HDL of: 44 and LDL of: 161 He is supposed to be on a regimen of: Crestor 40 mg po q pm ,today I have discussed with him the importance of taking his medications as prescribed on a daily basis .Pt will have a repeat Lipid profile prior to next visit. Pt advised to try to adhere to a low cholesterol diet, counseled and educated about diet and exercise, Patient encouraged to come up with a personal goal for weight loss. Resolved Problems Problem Noted Date Diagnosed Date Resolved Date Toothache 02/01/2023 12/18/2024 Assessment & Plan (02/01/2023 3:12 PM EDT): Pt seeing Dr Holland, requesting Ibuprofen has a follow up on Sunday Encounters Date Type Department Care Team Description 01/02/2025 Telephone [facility] [place] [address] Pee Loyola MD February Recall 01/01/2025 Telephone [facility] [place] [address] Pee Loyola MD March Recall 12/30/2024 Telephone [facility] [place] [address] Pee Loyola MD NUTRITION APPT REQUEST 12/23/2024 Telephone [facility] [place] [address] NUTRITION APPT REQUEST 12/18/2024 1:00 PM EST Office Visit [facility] [place] [address] Pee Loyola MD Obstructive sleep apnea syndrome (Primary Dx); Primary hypertension; Acute idiopathic gout of left foot; Class 1 obesity due to excess calories with serious comorbidity and body mass index (BMI) of 32.0 to 32.9 in adult; Impaired glucose tolerance; Pure hypercholesterolemia; Preventative health care; Flexural eczema; Encounter for immunization 12/18/2024 Travel 12/05/2024 Telephone [facility] [address] [place], [place] [phone] Pee Loyola MD Chart Prep 2024 Telephone [facility] [address] [place], [place] [phone] Pee Loyola MD Febraury Recall from Last 3 Months Immunizations Name Administration Dates Next Due Influenza Injectable Quadriv alant Preservative Free IIV4 MDCK 08/21/2022 Influenza injectable quadriv alent preservative free 12/16/2019,08/17/2017,03/21/2016 Influenza, IIV3, injectable 08/16/2011 Influenza, Split (incl. elizabeth fied surface antigen) 09/11/2012 Influenza, seasonal, injecta ble, preservative free 12/18/2024 Pfizer Covid-19 Vaccine 12+ 04/08/2021, 1 TD (adult), 2 Lf tetanus tox oid, preservative free, adsorbed 09/06/2005,09/21/1999 Tdap 12/18/2024,09/11/2012 Zoster, Recombinant 06/04/2023,08/21/2022 Social History Tobacco Use Types Packs/Day Years Used Date Smoking Tobacco: Never Smokeless Tobacco: Never Tobacco Cessation:Counseling Given: Not Answered Alcohol Use Standard Drinks/Week Comments Never 0 [...] Orientation Straight 12/18/2024 1: 00 PM EST Last Filed Vital Signs Vital Sign Reading [...] Mass Index 33.3 12/18/2024 12:54 PM EST Plan of Treatment Health Maintenance Due Date Last Done Comments Anal Pap 1963 CT Colonography 1963 FIT DNA/Cologuard 1963 FIT 1963 FOBT 1963 Sigmoidoscopy 1963 Hepatitis A Vaccines (1 of 2 - Risk 2-dose series) 1982 Pneumococcal Vaccine: 50+ Years (1 of 1 - PCV) 2013 Hepatitis B Vaccines (1 of 3 - Risk 3-dose series) 2023 Dental Oral Exam 11/01/2023 05/01/2023 Dental Prophylaxis 11/30/2023 05/29/2023 COVID-19 Vaccine ( - season) 2024 04/08/2021, 03/18/2021 Dental X-Ray: Bitewings 09/04/2024 09/03/2023, 05/01 SDOH Screening 03/12/2025 03/12/2024 Diabetes: Hemoglobin A1C 03/17/2025 03/17/2024, 02/17 Depression Screening 03/20/2025 03/20/2024, 03/20/20 Tobacco Screening 03/20/2025 03/20/2024 Colonoscopy 07/19/2025 07/19/2015 Colorectal Cancer Screening 07/19/2025 Alcohol/Substance Use Screening 12/18/2025 12/18/2024 Dental X-Ray: Full Mouth 05/02/2026 05/01/2023 Lipid Panel 03/18/2029 03/18/2024, 01/18, 05/01/2022, Additional history exists DTaP/Tdap/Td Vaccines (3 - Td or Tdap) 12/18/2034 12/18/2024, 09/11/2012, 09/06/2005, Additional history exists RSV Patients and Patients Aged 60 years or older (1 - 1-dose 75+ series) 2038 HIV Screening Completed 02/08/2023 Hepatitis C Screening Completed 02/08/2023, 022 Zoster Vaccines Completed 06/04/2023, 08/21/2022 Influenza Vaccine Completed 12/18/2024, , 12/16/2019, Additional history exists HIB Vaccines Aged Out No longer eligi ble based on patient's age to complete this topic HPV Vaccines Aged Out No longer eligi ble based on patient's age to complete this topic IPV Vaccines Aged Out No longer eligi ble based on patient's age to complete this topic Meningococcal Vaccine Aged Out No chandra kyara eligible based on patient's age to complete this topic RSV under 20 months Aged Out No longe r eligible based on patient's age to complete this topic Rotavirus Vaccines Aged Out No longer eligible based on patient's age to complete this topic Goals Goal Patient Goal Type Associated Problems Recent Progress Patient-Stated? Author Blood Pressure < 140/90 Blood Pressure Hypertension 120/81(2024 12:54 PM EST) No Erin Jensen PharmD Short-term: Promote adherence to treatment regimen General Hypertension Not on track( 024 4:11 PM EDT) No Erin Jensen, Melchor Note: Forgets to take medications about 3x/ weekly. Procedures Procedure Name Priority Date/Time Associated Diagnosis Comments LIPID PANEL, STANDARD Routine 03/18/2024 11:20 AM EDT POCT GLYCATED HEMOGLOBIN, TOTAL Routine 03/17/2024 2:01 PM EDT Preventative health care BITEWING - SINGLE RADIOGRAPHIC IMAGE Routine 09/03/2023 11:30 AM EDT Necrosis of dental pulp PROPHYLAXIS - ADULT Routine 05/29/2023 9 :00 AM EDT INTRAORAL - COMPLETE SERIES OF RADIOGRAPHIC IMAGES Routine 05/01/2023 3:00 PM EDT COMPREHENSIVE ORAL EVALUATION - NEW OR ESTABLISHED PATIENT Routine 05/01/2023 3:00 PM EDT HEPATITIS C AB W/REFL TO HCV RNA, QN, PCR Routine 02/08/2023 8:11 AM EDT Preventative health care HIV 1/2 ANTIGEN/ANTIBODY, FOURTH GENERATION W/RFL Routine 02/08/2023 8:11 AM EDT Preventative health care HM COLONOSCOPY Routine 07/19/2015 from Last 3 Months or Most Recently Relevant to Health Maintenance Results * (ABNORMAL) Lipid Panel, Standard (03/18/2024 11:20 AM EDT) Triglycerides 180(H) <150 mg/dL [facility] Comment:Desirable Triglyceri de: less than 150 mg/dLBorderline High Triglyceride 150-199 mg/dLHigh Triglyceride: 200-499 mg/dLVery High Triglyceride: greater than or equal to 5OO mg/dL Cholesterol 152 <200 mg/dL [facility] Comment:Desirable Cholestero l: less than 200 mg/dLBorderline High Cholesterol: 200-239 mg/dLHigh Cholesterol: greater than 239 mg/dL LDL Cholesterol Calculated 78 <100 mg/dL [facility] Comment:Desirable LDL: less than 100 mg/dLNear Optimal/Above Optimal LDL: 110- 129 mg/dLBorderline High LDL: 130-159 mg/dLHigh LDL: 160-189 mg/dLVery High LDL: greater than or equal to 190 mg/dL HDL Cholesterol 38(L) >40 mg/dL [facility] Comment:Desirable HDL: great er than 40 mg/dL Note: This HDL assay may give artificially low results in patients with liver disease. 03/18/2024 11:2 0 AM EDT 03/18/2024 1:14 PM EDT Pee Weiner MD LAB BLOOD ORDERABLES Final Result [facility] [address] [place] [phone] * (ABNORMAL) POCT A1C (03/17/2024 2:01 PM EDT) Pathologist [facility] Hemoglobin A1C 6.3(A) 4.0 - 6.0 % QC Media Lot # [id number] Lot# Expiration Date Blood 03/17/2024 2:01 PM EDT Pee Weiner MD POINT OF CARE TEST EN TER/EDIT ORDERABLES Final Result * Hepatitis C Antibody with Reflex to HCV, RNA, Quantitative, Real-Time PCR (02/08/2023 8:11 AM EDT) Hepatitis C Antibody NON-REACT ANDRES NON-REACT ANDRES [employer] [place] [employer] Index 0.04 <1.00 [employer] [place] [facility] Comment: HCV antibody was non-reactive. There is no laboratory evidence of HCV infection. In most cases, no further action is required. However, if recent HCV exposure is suspected, a test for HCV RNA (test code 29888) is suggested. For additional information please refer to http://[employer]/faq/GTF88y1 (This link is being provided for informational/ educational purposes only.) Blood Venous blood specimen / Unknown 02/08/2023 8:11 AM EDT 02/08/2023 8:12 AM EDT Narrative [facility] - 02/08/2023 7:42 PM EDT FASTING:YES FASTING: YES Pee Weiner MD LAB BLOOD ORDERABLES Final Result [facility] [address], [place] [address] [employer] [facility] [address] [place] [phone] * HIV-1/2 Antigen and Antibodies, Fourth Generation, with Reflexes (02/08/2023 8:11 AM EDT) HIV Antigen/Antibody, 4th Generation NON-REAC TIVE NON-REAC TIVE [employer] [place] [employer] Comment: HIV-1 antigen and HIV-1/HIV-2 antibodies were not detected. There is no laboratory evidence of HIV infection. PLEASE NOTE: This information has been disclosed to you from records whose confidentiality may be protected by state law. ??If your state requires such protection, then the state law prohibits you from making any further disclosure of the information without the specific written consent of the person to whom it pertains, or as otherwise permitted by law. A general authorization for the release of medical or other information is NOT sufficient for this purpose. ?? For additional information please refer to http://[employer]/faq/PRE640 (This link is being provided for informational/ educational purposes only.) The performance of this assay has not been clinically validated in patients less than 2 years old. Blood Venous blood specimen / Unknown 02/08/2023 8:11 AM EDT 02/08/2023 8:12 AM EDT Narrative [facility] - 02/08/2023 7:42 PM EDT FASTING:YES FASTING: YES Pee Weiner MD LAB BLOOD ORDERABLES Final Result [facility] [address], [place] [address] [employer] [place] [facility] [address] [place] [address] * Hm Colonoscopy (07/19/2015) Colonoscopy Normal Normal 07/19/2015 Karen Bocanegra - 07/19/2015 2:26 PM EDT Recommended 10 year follow up Historical Provider HEALTH MAINTENANCE Edited Result - Final from Last 3 Months or Most Recently Relevant to Health Maintenance Insurance [facility] - [facility] Care Teams Pond Sawyer Relationship Specialty Start Date End Date Pee Loyola MD [address] [place] [address] PCP - General Internal Medicine 08/18/14 Erin Jensen PharmD [address] [place] [address] Pharmacist Internal Medicine 06/04/23
--- OUTSIDE RECORDS SUMMARY | 2025-01-06 09:04 | XMS_ITS | Encounter Summary ---
Author Organization [employer] Address [address] [facility] 7[address] [place] [address] Care Team Providers Care Auto Body Repair Teacher Name Role Phone Pee Loyola MD Primary Care Provide r Erin Jensen PharmD Unavailable [phone] Reason for Visit * Reason Onset Date Comments NUTRITION APPT REQUEST 12/23/2024 Encounter Details Date Type Department Care Team ([facility] st Contact Info) Description 12/23/[address] [facility] [address] [place] [address] Elena Anderson, RD [address] [place] [address] NUTRITION APPT REQUEST Social History Tobacco Use [...] with others, in a hotel, in a senior care, living outside on the street, on a [...] * Telephone Encounter - Adriana Blanchard - 12/23/2024 2:57 PM EST Called PT to schedule a nutrition appt NA\LVM documented in this encounter Plan of [...] documented as of this encounter Care Teams Auto Body Repair Teacher Relationship Specialty Start Date End Date Pee Loyola MD [address] [place] [phone] PCP - General Internal Medicine 08/18/14 Erin Jensen PharmD [address] [place] [phone] Pharmacist Internal Medicine 06/04/23 documented as of this encounter
--- OUTSIDE RECORDS SUMMARY | 2025-01-06 09:05 | XMS_ITS | Encounter Summary ---
Author Organization [employer] Address [address] [facility] 7t [place] [address] Care Team Providers Care Resort Manager Name Role Phone Pee Loyola MD Primary Care Provide r Erin Jensen PharmD Unavailable [phone] Encounter Details Date Type Department Care Team (Late st Contact Info) Description 06/11/2023 Abstract [facility] [address] [place] [address] Klaus, Suly [address] [place] [address] Social History Tobacco Use Types Packs/Day Years [...] Orientation Straight 12/18/2024 1: 00 PM EST COVID-19 Exposure Response Date Recorded In the last 10 days, have yo u been in contact with someone who was confirmed or suspected to have Coronavirus/COVID-19? No / Unsure 05/29/2023 8:34 AM EDT documented as of this encounter Plan of Treatment Not on file documented as of this encounter Goals Goal Patient Goal Type Associated Problems Recent Progress Patient-Stated? Author Blood Pressure < 140/90 Blood Pressure Hypertension 120/81(2024 12:54 PM EST) No Erin Jensen, PharmD Short-term: Promote adherence to treatment regimen [...] documented as of this encounter Care Teams Resort Manager Relationship Specialty Start Date End Date Pee Loyola MD [address] [place] [address] PCP - General Internal Medicine 08/18/14 Erin Jensen, Melchor [address] [place] [phone] Pharmacist Internal Medicine 06/04/23 documented as of this encounter
--- OUTSIDE RECORDS SUMMARY | 2025-01-06 09:05 | XMS_ITS | Encounter Summary ---
Author Organization [employer] Address [address] [facility] 7t [place] [address] Care Team Providers Care Co Op Name Role Phone Pee Loyola MD Primary Care Provide r Erin Jensen PharmD Unavailable [phone] Encounter Details Date Type Department Care Team (Late st Contact Info) Description 09/28/2023 Abstract [facility] [address] [place] [address] Maurice Cunningham, ESAU [address] [place], [place] [phone] Social History Tobacco Use Types Packs/Day Years Used Date Smoking Tobacco: Never Smokeless Tobacco: Never Alcohol Use Standard Drinks/Week Comments Never 0 (1 standard drink = 0.6 oz pur e alcohol) Depression Answer Date Recorded Patient Health Questionnaire-9 Score 4 02/01/2023 Housing Stability Answer Date Recorded What is your housing situation today? I am not s ure 09/03/[address] you li ve. Do you have problems with any of the following? None of the above 09/03/2023 Food Insecurity Answer Date Recorded Within the past 12 months, y ou worried that your food would run out before you got money to buy more: Never True 09/03/2023 Within the past 12 months,th e food you bought just didn't last and you didn't have enough money to get more: Never True Transportation Answer Date Recorded In the past 12 months, has l ack of transportation kept you from medical appts, meetings, work or from getting things needed for daily living? No 09/03/2023 Utilities Answer Date Recorded In the past 12 months, has t he electric, gas, oil or water company threatened to shut off services in your home? No 09/03/2023 Depression Answer Date Recorded Patient Health Questionnaire-2 [...] documented as of this encounter Care Teams Co Op Relationship Specialty Start Date End Date Pee Loyola MD [address] [place] [address] PCP - General Internal Medicine 08/18/14 Erin Jensen PharmD [address] [place] [address] Pharmacist Internal Medicine 06/04/23 documented as of this encounter
[2025-01-06 12:31] LABS: Prostate Specific Antigen Scr 1.45 ng/mL (<0.05-4.0)
[2025-01-06 12:33] LABS: Alanine Aminotransferase 40 U/L (0-40); Alkaline Phosphatase 65 U/L (39-117); Anion Gap 12 (12-20); Aspartate Amino Transferase 36 U/L (5-37); Bilirubin Total 0.4 mg/dL (0.0-1.0); Blood Urea Nitrogen 26 mg/dL (9-16); Calcium 9.9 mg/dL (8.4-10.2); Carbon Dioxide 24 mmol/L (22-29); Chloride 109 mmol/L (96-108); Cholesterol 118 mg/dL (<200); Estimated Glomerular Filt Rate > 60; Glucose Random 121 mg/dL (60-115); HDL Cholesterol 28 mg/dL (>40); LDL Cholesterol Calculated 72 mg/dL (<100); Potassium 3.9 mmol/L (3.3-5.1); Sodium 141 mmol/L (135-145); Total Protein 8.3 g/dL (6.5-8.0); Triglycerides 92 mg/dL (<150); Uric Acid 8.5 mg/dL (3.4-7.0)
== END 2025-01-06 08:39 | disposition home or self-care (01) ==
LOC: HO.HHCL 08:38
PROVIDERS: Visit Provider Internal Medicine
DX: Z00.00 Encounter for general adult medical examination without abnormal findings (principal); I10 Essential (primary) hypertension; E78.00 Pure hypercholesterolemia, unspecified; M10.072 Idiopathic gout, left ankle and foot; Z12.5 Encounter for screening for malignant neoplasm of prostate
CPT/HCPCS: 36415; 80053; 80061; 84153; 84550